=== PATIENT | male | born 1980 | race African-American/Black ===

== ENCOUNTER 2023-06-08 11:52 | Emergency (ER) | payer SELFPAY ==
[2023-06-08] MEDS ORDERED: Boostrix 0.5 ML (Tdap) VIAL (>/=7 yrs of age) ONE ×2 (12:25→12:27)
== END 2023-06-08 12:48 | disposition home or self-care (01) ==
LOC: ERS 11:52
DX: S61.210A Laceration without foreign body of right index finger without damage to nail, initial encounter (principal); I10 Essential (primary) hypertension; F17.210 Nicotine dependence, cigarettes, uncomplicated; W26.0XXA Contact with knife, initial encounter; Z23 Encounter for immunization
CPT/HCPCS: 90471; 90715